=== PATIENT | female | born 1950 | race Caucasian/White ===

== ENCOUNTER 2018-10-15 10:54 | Emergency (ER) | payer MEDICARE, OTHER ==
[~2018-10-15] VITALS: Ht 167.6 cm; Wt 73.4 kg
[2018-10-15 12:14] VITALS: BP 120/66
== END 2018-10-15 12:43 | disposition home or self-care (01) ==
LOC: ED 12:15
DX: S40.021A Contusion of right upper arm, initial encounter (principal); S64.01XA Injury of ulnar nerve at wrist and hand level of right arm, initial encounter; Z86.718 Personal history of other venous thrombosis and embolism; X58.XXXA Exposure to other specified factors, initial encounter; Y93.89 Activity, other specified; Y92.89 Other specified places as the place of occurrence of the external cause; Y99.8 Other external cause status
CPT/HCPCS: 99284